=== PATIENT | male | born 1960 | race Caucasian/White ===

== ENCOUNTER 2016-12-11 16:46 | Inpatient (IN) | payer OTHER ==
[~2016-12-11] VITALS: Ht 180.3 cm; Wt 72.3 kg
[~2016-12-11 16:46] MED LIST: ACID1TAB7 PO; AMIL5TAB2 PO; AMOX1TAB12 PO; ARIP10TA13 PO; ERGO500017 PO; FLUC200T PO; HYDR12.53 PO; METO25TA35 PO; MULT-484 PO; PANT40TA5 PO; TRAM50TA2 PO
[2016-12-11] MEDS ORDERED: PIPERACILLIN/TAZO/PMX 3.375GM 50 ML IVPB ONE (17:00)
[2016-12-11] MEDS ORDERED: SODIUM CHLORIDE FLUSH 10ML SYR IVF ONE (17:00)
[2016-12-11] MEDS ORDERED: VANCOMYCIN PER PHARMACY MC ONE (17:00)
[2016-12-11] MEDS ORDERED: SODIUM CHLORIDE 0.9% 1,000ML IVBOLUS ONE (17:00)
[2016-12-11] MEDS ORDERED: LORazepam 2 MG/ML, 1ML IVPush ONE (17:00)
[2016-12-11] MEDS ORDERED: PANT40TA5 PO (17:06)
[2016-12-11] MEDS ORDERED: METO25TA35 PO (17:06)
[2016-12-11] MEDS ORDERED: CHOL200012 PO (17:06)
[2016-12-11] MEDS ORDERED: ARIP15TA2 PO (17:06)
[2016-12-11] MEDS ORDERED: PIPERACILLIN/TAZO/PMX 3.375GM 50 ML ONE (17:25)
[2016-12-11] MEDS ORDERED: LORazepam 2 MG/ML, 1ML ONE (17:25)
[2016-12-11 17:31] LABS: ASPARTATE AMINO TRANSFERASE 32 U/L (15-37); BLOOD UREA NITROGEN 16 mg/dL (7-18)
[2016-12-11] MEDS ORDERED: VANCOMYCIN 1,600 MG in SODIUM CHLORIDE 0.9% 250 ML IV ONE (18:00)
[2016-12-11] MEDS ORDERED: ZIPRASIDONE 20 MG INJ IM ONE (18:00)
[2016-12-11] MEDS: SODIUM CHLORIDE 0.9% 1,000 ML IV SCH (20:27)
[2016-12-11] MEDS ORDERED: HYDROmorphone 2 MG/ML, 1ML IVPush PRN (20:30)
[2016-12-11] MEDS ORDERED: DOCUSATE 100 MG CAPSULE PO PRN ×2 (20:30→21:30)
[2016-12-11] MEDS: NICOTINE 21 MG/24 HR PATCH.TD24 TD SCH (20:30)
[2016-12-11] MEDS ORDERED: POLYETHYLENE GLYCOL 17 GM PACKET PO PRN ×2 (20:30→22:00)
[2016-12-11] MEDS ORDERED: VANCOMYCIN PER PHARMACY MC PRN (20:30)
[2016-12-11] MEDS ORDERED: ONDANSETRON 2MG/ML, 2ML IVPush PRN ×2 (20:30→21:30)
[2016-12-11] MEDS ORDERED: PIPERACILLIN/TAZO/PMX 3.375GM 50 ML IV SCH (20:30)
[2016-12-11] MEDS ORDERED: TEMAZEPAM 15 MG CAPSULE PO PRN ×2 (20:30→22:00)
[2016-12-11] MEDS ORDERED: PHARMACY MAY ADJ FOR RENAL FX MC PRN (20:30)
[2016-12-11 20:56] VITALS: BP 116/76
[2016-12-11] MEDS ORDERED: PHARMACOKINETIC MONITORING MC PRN (21:30)
[2016-12-11] MEDS ORDERED: PHARMACOKINETIC CONSULTATION MC ONE (21:30)
[2016-12-11] MEDS: PIPERACILLIN/TAZO/PMX 3.375GM 50 ML IV SCH (23:30)
[2016-12-12 00:28] VITALS: BP 136/88
[2016-12-12 02:00] VITALS: BP 124/82
[2016-12-12 05:51] LABS: BLOOD UREA NITROGEN 13 mg/dL (7-18)
[2016-12-12] MEDS: HEPARIN 5,000 UNITS/ML, 1ML SQ SCH ×3 (06:15→20:08)
[2016-12-12] MEDS: PIPERACILLIN/TAZO/PMX 3.375GM 50 ML IV SCH ×4 (06:15→22:53)
[2016-12-12] MEDS: SODIUM CHLORIDE 0.9% 1,000 ML IV SCH ×3 (06:15→22:53)
[2016-12-12 08:00] VITALS: BP 120/74
[2016-12-12 13:16] VITALS: BP 117/79
[2016-12-12 20:00] VITALS: BP 126/84
[2016-12-12] MEDS: NICOTINE 21 MG/24 HR PATCH.TD24 TD SCH (20:07)
[2016-12-13 02:55] VITALS: BP 127/89
[2016-12-13] MEDS ORDERED: ZIPRASIDONE 20 MG INJ IM ONE (03:00)
[2016-12-13] MEDS: PIPERACILLIN/TAZO/PMX 3.375GM 50 ML IV SCH ×4 (05:47→22:58)
[2016-12-13] MEDS: HEPARIN 5,000 UNITS/ML, 1ML SQ SCH ×3 (05:49→22:56)
[2016-12-13 07:55] LABS: BLOOD UREA NITROGEN 9 mg/dL (7-18)
[2016-12-13] MEDS: SODIUM CHLORIDE 0.9% 1,000 ML IV SCH (08:36)
[2016-12-13] MEDS: ARIPIPRAZOLE 15 MG TABLET PO SCH (08:37)
[2016-12-13 08:42] VITALS: BP 124/85
[2016-12-13] MEDS ORDERED: VANCOMYCIN 1,400 MG in SODIUM CHLORIDE 0.9% 250 ML IV SCH (10:00)
[2016-12-13] MEDS: LORazepam 1MG TABLET PO PRN ×3 (11:56→22:54)
[2016-12-13 13:27] VITALS: BP 133/94
[2016-12-13] MEDS: METOPROLOL TARTRATE 25 MG TABLET PO SCH (18:19)
[2016-12-13] MEDS: PANTOPROZOLE 40MG TABLET PO SCH (20:21)
[2016-12-13] MEDS: NICOTINE 21 MG/24 HR PATCH.TD24 TD SCH (20:27)
[2016-12-13 20:55] VITALS: BP 123/87
[2016-12-14 02:55] VITALS: BP 115/77
[2016-12-14] MEDS: LORazepam 1MG TABLET PO PRN ×2 (05:45→14:29)
[2016-12-14] MEDS: METOPROLOL TARTRATE 25 MG TABLET PO SCH ×2 (05:45→17:21)
[2016-12-14] MEDS: HEPARIN 5,000 UNITS/ML, 1ML SQ SCH ×3 (05:47→23:04)
[2016-12-14] MEDS: PIPERACILLIN/TAZO/PMX 3.375GM 50 ML IV SCH ×4 (05:48→23:04)
[2016-12-14 06:53] VITALS: BP 119/82
[2016-12-14] MEDS: ARIPIPRAZOLE 15 MG TABLET PO SCH (08:35)
[2016-12-14] MEDS: PANTOPROZOLE 40MG TABLET PO SCH ×2 (08:35→20:15)
[2016-12-14] MEDS ORDERED: VANCOMYCIN 1,400 MG in SODIUM CHLORIDE 0.9% 250 ML IV SCH (10:00)
[2016-12-14 12:41] LABS: BLOOD UREA NITROGEN 11 mg/dL (7-18)
[2016-12-14 13:35] VITALS: BP 128/84
[2016-12-14] MEDS: HYDROCHLOROTHIAZIDE 12.5 MG CAPSULE PO SCH (14:19)
[2016-12-14] MEDS ORDERED: HALOPERIDOL 5 MG TABLET PO PRN (15:30)
[2016-12-14 20:10] VITALS: BP 126/84
[2016-12-14] MEDS: NICOTINE 21 MG/24 HR PATCH.TD24 TD SCH (20:30)
[2016-12-14] MEDS: HALOPERIDOL 5 MG/ML IM PRN (23:02)
[2016-12-15 02:55] VITALS: BP 119/72
[2016-12-15] MEDS: HALOPERIDOL 5 MG/ML IM PRN (03:26)
[2016-12-15] MEDS: LORazepam 1MG TABLET PO PRN (05:58)
[2016-12-15] MEDS: METOPROLOL TARTRATE 25 MG TABLET PO SCH ×3 (06:00→17:12)
[2016-12-15] MEDS: HEPARIN 5,000 UNITS/ML, 1ML SQ SCH ×3 (06:03→23:03)
[2016-12-15] MEDS: PIPERACILLIN/TAZO/PMX 3.375GM 50 ML IV SCH ×4 (06:04→23:05)
[2016-12-15 06:20] LABS: BLOOD UREA NITROGEN 14 mg/dL (7-18)
[2016-12-15 07:38] VITALS: BP 124/78
[2016-12-15] MEDS: HYDROCHLOROTHIAZIDE 12.5 MG CAPSULE PO SCH (08:57)
[2016-12-15] MEDS: ARIPIPRAZOLE 15 MG TABLET PO SCH ×2 (08:57→21:00)
[2016-12-15] MEDS: PANTOPROZOLE 40MG TABLET PO SCH ×2 (08:57→20:00)
[2016-12-15] MEDS: ZIPRASIDONE 20 MG INJ IM PRN ×3 (11:11→23:01)
[2016-12-15] MEDS: AMILORIDE 5 MG TABLET PO SCH (12:39)
[2016-12-15 13:28] LABS: POTASSIUM,URINE RANDOM 11 mmol/L
[2016-12-15 14:18] VITALS: BP 127/78
[2016-12-15] MEDS: NICOTINE 21 MG/24 HR PATCH.TD24 TD SCH (20:30)
[2016-12-15 20:56] VITALS: BP 113/72
[2016-12-15] MEDS: CARBAMAZEPINE 200 MG TABLET PO SCH (21:00)
[2016-12-16 03:49] VITALS: BP 109/68
[2016-12-16 05:47] LABS: BLOOD UREA NITROGEN 14 mg/dL (7-18)
[2016-12-16] MEDS: METOPROLOL TARTRATE 25 MG TABLET PO SCH ×2 (06:00→18:21)
[2016-12-16] MEDS: HEPARIN 5,000 UNITS/ML, 1ML SQ SCH ×3 (06:00→22:00)
[2016-12-16] MEDS: PIPERACILLIN/TAZO/PMX 3.375GM 50 ML IV SCH ×4 (06:01→23:56)
[2016-12-16] MEDS: ZIPRASIDONE 20 MG INJ IM PRN (06:36)
[2016-12-16 07:43] VITALS: BP 118/74
[2016-12-16] MEDS: PANTOPROZOLE 40MG TABLET PO SCH ×2 (08:00→19:59)
[2016-12-16] MEDS: AMILORIDE 5 MG TABLET PO SCH (09:00)
[2016-12-16] MEDS: HYDROCHLOROTHIAZIDE 12.5 MG CAPSULE PO SCH (09:00)
[2016-12-16] MEDS: ARIPIPRAZOLE 15 MG TABLET PO SCH ×2 (09:00→21:00)
[2016-12-16] MEDS: CARBAMAZEPINE 200 MG TABLET PO SCH ×2 (09:00→21:00)
[2016-12-16] MEDS ORDERED: OLANZAPINE 10 MG INJ IM PRN (12:00)
[2016-12-16 14:10] VITALS: BP 112/76
[2016-12-16 19:53] VITALS: BP 113/76
[2016-12-16] MEDS: NICOTINE 21 MG/24 HR PATCH.TD24 TD SCH (19:59)
[2016-12-17 00:30] VITALS: BP 129/88
[2016-12-17] MEDS: PIPERACILLIN/TAZO/PMX 3.375GM 50 ML IV SCH ×4 (05:22→23:40)
[2016-12-17] MEDS: HEPARIN 5,000 UNITS/ML, 1ML SQ SCH ×3 (05:42→21:34)
[2016-12-17] MEDS: METOPROLOL TARTRATE 25 MG TABLET PO SCH ×2 (05:42→18:00)
[2016-12-17] MEDS: CARBAMAZEPINE 200 MG TABLET PO SCH (08:14)
[2016-12-17] MEDS: ARIPIPRAZOLE 15 MG TABLET PO SCH ×2 (08:15→21:00)
[2016-12-17] MEDS: PANTOPROZOLE 40MG TABLET PO SCH ×2 (08:15→21:33)
[2016-12-17] MEDS: HYDROCHLOROTHIAZIDE 12.5 MG CAPSULE PO SCH (08:15)
[2016-12-17] MEDS ORDERED: LORazepam 2 MG/ML, 1ML IVPush ONE (09:00)
[2016-12-17] MEDS ORDERED: OLANZAPINE 10 MG INJ IM PRN (09:30)
[2016-12-17 10:37] LABS: BLOOD UREA NITROGEN 16 mg/dL (7-18)
[2016-12-17 10:40] LABS: ASPARTATE AMINO TRANSFERASE 59 U/L (15-37)
[2016-12-17] MEDS: VALPROATE SODIUM 500 MG in DEXTROSE 5% 100 ML IV SCH ×2 (10:40→21:33)
[2016-12-17] MEDS: AMILORIDE 5 MG TABLET PO SCH (11:40)
[2016-12-17 12:30] VITALS: BP 123/88
[2016-12-17] MEDS ORDERED: POTASSIUM CHLORIDE 20 MEQ TAB.ER.PRT PO ONE (16:30)
[2016-12-17] MEDS: FLUCONAZOLE 200 MG/100 ML 100 ML IV SCH (17:08)
[2016-12-17 20:22] VITALS: BP 134/78
[2016-12-17] MEDS: NICOTINE 21 MG/24 HR PATCH.TD24 TD SCH (21:34)
[2016-12-18 01:38] VITALS: BP 119/83
[2016-12-18] MEDS: PIPERACILLIN/TAZO/PMX 3.375GM 50 ML IV SCH ×3 (05:19→17:28)
[2016-12-18] MEDS: METOPROLOL TARTRATE 25 MG TABLET PO SCH ×2 (05:19→17:26)
[2016-12-18] MEDS: HEPARIN 5,000 UNITS/ML, 1ML SQ SCH ×3 (05:20→22:56)
[2016-12-18 08:29] LABS: BLOOD UREA NITROGEN 15 mg/dL (7-18)
[2016-12-18 08:33] VITALS: BP 124/90
[2016-12-18] MEDS: ARIPIPRAZOLE 15 MG TABLET PO SCH ×2 (09:00→20:50)
[2016-12-18] MEDS: LORazepam 1MG TABLET PO PRN ×2 (09:29→14:55)
[2016-12-18] MEDS: HYDROCHLOROTHIAZIDE 12.5 MG CAPSULE PO SCH (10:18)
[2016-12-18] MEDS: VALPROATE SODIUM 500 MG in DEXTROSE 5% 100 ML IV SCH ×2 (10:18→22:57)
[2016-12-18] MEDS: PANTOPROZOLE 40MG TABLET PO SCH ×2 (10:18→20:50)
[2016-12-18 14:54] VITALS: BP 126/89
[2016-12-18] MEDS: FLUCONAZOLE 200 MG/100 ML 100 ML IV SCH (17:27)
[2016-12-18 19:36] VITALS: BP 123/88
[2016-12-18] MEDS: NICOTINE 21 MG/24 HR PATCH.TD24 TD SCH ×2 (20:30→20:50)
[2016-12-19] MEDS: PIPERACILLIN/TAZO/PMX 3.375GM 50 ML IV SCH ×6 (00:08→21:25)
[2016-12-19 01:50] VITALS: BP 105/76
[2016-12-19 05:09] LABS: BLOOD UREA NITROGEN 18 mg/dL (7-18)
[2016-12-19] MEDS: HEPARIN 5,000 UNITS/ML, 1ML SQ SCH ×3 (05:24→21:11)
[2016-12-19] MEDS: METOPROLOL TARTRATE 25 MG TABLET PO SCH ×2 (05:25→16:34)
[2016-12-19] MEDS: LORazepam 1MG TABLET PO PRN ×2 (06:05→13:33)
[2016-12-19 08:00] VITALS: BP 128/87
[2016-12-19] MEDS: ARIPIPRAZOLE 15 MG TABLET PO SCH ×2 (09:00→21:10)
[2016-12-19] MEDS: HYDROCHLOROTHIAZIDE 12.5 MG CAPSULE PO SCH (09:00)
[2016-12-19] MEDS: PANTOPROZOLE 40MG TABLET PO SCH ×2 (10:21→21:10)
[2016-12-19] MEDS: VALPROATE SODIUM 500 MG in DEXTROSE 5% 100 ML IV SCH (10:21)
[2016-12-19 14:00] VITALS: BP 105/73
[2016-12-19] MEDS: FLUCONAZOLE 200 MG/100 ML 100 ML IV SCH (16:34)
[2016-12-19 20:04] VITALS: BP 126/83
[2016-12-19] MEDS: VALPROATE SODIUM 250 MG/5 ML ORAL SOLN PO SCH (21:11)
[2016-12-19] MEDS: NICOTINE 21 MG/24 HR PATCH.TD24 TD SCH (21:11)
[2016-12-20 02:12] VITALS: BP 108/76
[2016-12-20] MEDS: PIPERACILLIN/TAZO/PMX 3.375GM 50 ML IV SCH ×2 (04:59→11:22)
[2016-12-20] MEDS: HEPARIN 5,000 UNITS/ML, 1ML SQ SCH ×3 (05:52→22:20)
[2016-12-20] MEDS: METOPROLOL TARTRATE 25 MG TABLET PO SCH ×2 (05:52→18:28)
[2016-12-20 06:45] VITALS: BP 129/79
[2016-12-20] MEDS: HYDROCHLOROTHIAZIDE 12.5 MG CAPSULE PO SCH (08:17)
[2016-12-20] MEDS: PANTOPROZOLE 40MG TABLET PO SCH ×2 (08:17→20:35)
[2016-12-20] MEDS: VALPROATE SODIUM 250 MG/5 ML ORAL SOLN PO SCH ×2 (08:18→20:36)
[2016-12-20] MEDS: ARIPIPRAZOLE 15 MG TABLET PO SCH ×2 (08:18→20:35)
[2016-12-20] MEDS: SULFAMETH./TRIMETHOPRIM DS 800MG/160MG TABLET PO SCH ×2 (13:42→20:35)
[2016-12-20] MEDS: LORazepam 1MG TABLET PO PRN ×2 (13:42→18:51)
[2016-12-20 13:45] VITALS: BP 123/83
[2016-12-20 19:39] VITALS: BP 122/83
[2016-12-20] MEDS: NICOTINE 21 MG/24 HR PATCH.TD24 TD SCH (20:30)
[2016-12-21 02:05] VITALS: BP 108/78
[2016-12-21 05:41] LABS: BLOOD UREA NITROGEN 25 mg/dL (7-18)
[2016-12-21] MEDS: METOPROLOL TARTRATE 25 MG TABLET PO SCH ×2 (06:03→18:01)
[2016-12-21] MEDS: NYSTATIN 500,000 UNITS/5 ML UDC PO SCH ×4 (06:04→19:46)
[2016-12-21] MEDS: HEPARIN 5,000 UNITS/ML, 1ML SQ SCH ×3 (06:06→19:46)
[2016-12-21 07:28] VITALS: BP 108/81
[2016-12-21] MEDS: SULFAMETH./TRIMETHOPRIM DS 800MG/160MG TABLET PO SCH ×2 (08:49→19:45)
[2016-12-21] MEDS: VALPROATE SODIUM 250 MG/5 ML ORAL SOLN PO SCH ×2 (08:49→19:45)
[2016-12-21] MEDS: PANTOPROZOLE 40MG TABLET PO SCH ×2 (08:50→19:46)
[2016-12-21] MEDS: ARIPIPRAZOLE 15 MG TABLET PO SCH ×2 (08:50→19:46)
[2016-12-21] MEDS: HYDROCHLOROTHIAZIDE 12.5 MG CAPSULE PO SCH (08:50)
[2016-12-21] MEDS: FLUCONAZOLE 200 MG TABLET PO SCH (08:50)
[2016-12-21 13:25] VITALS: BP 117/84
[2016-12-21] MEDS: LORazepam 1MG TABLET PO PRN ×2 (13:27→18:01)
[2016-12-21] MEDS: NICOTINE 21 MG/24 HR PATCH.TD24 TD SCH (19:09)
[2016-12-21 19:16] VITALS: BP 101/67
[2016-12-22 01:50] VITALS: BP 122/86
[2016-12-22] MEDS: HEPARIN 5,000 UNITS/ML, 1ML SQ SCH ×3 (05:12→22:00)
[2016-12-22] MEDS: LORazepam 1MG TABLET PO PRN ×2 (05:12→11:06)
[2016-12-22] MEDS: NYSTATIN 500,000 UNITS/5 ML UDC PO SCH ×3 (05:12→16:10)
[2016-12-22] MEDS: METOPROLOL TARTRATE 25 MG TABLET PO SCH (05:12)
[2016-12-22 06:02] LABS: BLOOD UREA NITROGEN 23 mg/dL (7-18)
[2016-12-22 08:15] VITALS: BP 121/83
[2016-12-22] MEDS: ARIPIPRAZOLE 15 MG TABLET PO SCH (08:19)
[2016-12-22] MEDS: PANTOPROZOLE 40MG TABLET PO SCH (08:20)
[2016-12-22] MEDS: SULFAMETH./TRIMETHOPRIM DS 800MG/160MG TABLET PO SCH (08:20)
[2016-12-22] MEDS: VALPROATE SODIUM 250 MG/5 ML ORAL SOLN PO SCH (08:20)
[2016-12-22] MEDS: FLUCONAZOLE 200 MG TABLET PO SCH (08:20)
[2016-12-22 13:48] VITALS: BP 110/82
[2016-12-22 15:21] LABS: ABG COLLECTION SITE LEFT RADIAL; COLLATERAL CIRCULATION TESTING NORMAL
[2016-12-22 19:25] VITALS: BP 108/75
[2016-12-22 20:30] VITALS: BP 127/88
[2016-12-22] MEDS: NICOTINE 21 MG/24 HR PATCH.TD24 TD SCH (20:30)
[2016-12-22] MEDS ORDERED: HEPARIN 5,000 UNITS/ML, 1ML IV ONE (23:45)
[2016-12-23] MEDS: PANTOPROZOLE 40MG TABLET PO SCH ×3 (01:44→21:33)
[2016-12-23] MEDS: NYSTATIN 500,000 UNITS/5 ML UDC PO SCH ×5 (01:44→21:32)
[2016-12-23] MEDS: VALPROATE SODIUM 250 MG/5 ML ORAL SOLN PO SCH ×3 (01:44→21:32)
[2016-12-23] MEDS: SULFAMETH./TRIMETHOPRIM DS 800MG/160MG TABLET PO SCH ×3 (01:44→21:33)
[2016-12-23] MEDS: METOPROLOL TARTRATE 25 MG TABLET PO SCH ×3 (01:44→17:26)
[2016-12-23] MEDS: ARIPIPRAZOLE 15 MG TABLET PO SCH ×3 (01:45→21:30)
[2016-12-23 02:13] VITALS: BP 104/73
[2016-12-23] MEDS: HEPARIN 25,000 UNITS/500ML PMX 500 ML IV PRN (03:53)
[2016-12-23 06:08] LABS: BLOOD UREA NITROGEN 24 mg/dL (7-18)
[2016-12-23 08:30] VITALS: BP 104/73
[2016-12-23] MEDS: FLUCONAZOLE 200 MG TABLET PO SCH (09:24)
[2016-12-23] MEDS: SODIUM CHLORIDE 0.9% 1,000 ML IV SCH ×2 (09:24→18:05)
[2016-12-23 14:30] VITALS: BP 110/76
[2016-12-23] MEDS: HEPARIN 5,000 UNITS/ML, 1ML IV PRN (17:25)
[2016-12-23 19:43] VITALS: BP 104/72
[2016-12-23] MEDS: NICOTINE 21 MG/24 HR PATCH.TD24 TD SCH (19:45)
[2016-12-24 02:00] VITALS: BP 128/83
[2016-12-24 05:59] LABS: BLOOD UREA NITROGEN 21 mg/dL (7-18)
[2016-12-24] MEDS: NYSTATIN 500,000 UNITS/5 ML UDC PO SCH ×4 (06:20→20:40)
[2016-12-24] MEDS: METOPROLOL TARTRATE 25 MG TABLET PO SCH ×2 (06:22→16:50)
[2016-12-24] MEDS: HEPARIN 25,000 UNITS/500ML PMX 500 ML IV PRN (06:38)
[2016-12-24] MEDS: HEPARIN 5,000 UNITS/ML, 1ML IV PRN (07:10)
[2016-12-24 08:30] VITALS: BP 115/78
[2016-12-24] MEDS ORDERED: SODIUM CHLORIDE 0.9% 1,000 ML IV SCH (08:30)
[2016-12-24] MEDS: ARIPIPRAZOLE 15 MG TABLET PO SCH ×2 (09:54→20:41)
[2016-12-24] MEDS: LORazepam 1MG TABLET PO PRN ×3 (09:55→20:40)
[2016-12-24] MEDS: PANTOPROZOLE 40MG TABLET PO SCH ×2 (09:57→20:41)
[2016-12-24] MEDS: SULFAMETH./TRIMETHOPRIM DS 800MG/160MG TABLET PO SCH ×2 (09:57→20:41)
[2016-12-24] MEDS: FLUCONAZOLE 200 MG TABLET PO SCH (09:58)
[2016-12-24] MEDS: VALPROATE SODIUM 250 MG/5 ML ORAL SOLN PO SCH ×2 (09:59→20:41)
[2016-12-24] MEDS: SODIUM CHLORIDE 0.9% 1,000 ML IV SCH ×2 (13:20→23:27)
[2016-12-24] MEDS: APIXABAN 5 MG TABLET PO SCH ×2 (13:20→20:40)
[2016-12-24 14:30] VITALS: BP 118/72
[2016-12-24] MEDS: NICOTINE 21 MG/24 HR PATCH.TD24 TD SCH (19:20)
[2016-12-24 20:33] VITALS: BP 128/74
[2016-12-25 03:00] VITALS: BP 120/80
[2016-12-25] MEDS: METOPROLOL TARTRATE 25 MG TABLET PO SCH (04:56)
[2016-12-25] MEDS: LORazepam 1MG TABLET PO PRN ×2 (04:56→14:45)
[2016-12-25] MEDS: NYSTATIN 500,000 UNITS/5 ML UDC PO SCH ×2 (04:56→11:23)
[2016-12-25 05:29] LABS: BLOOD UREA NITROGEN 16 mg/dL (7-18)
[2016-12-25 07:39] VITALS: BP 106/72
[2016-12-25] MEDS ORDERED: SODIUM CHLORIDE 0.9% 1,000 ML IV SCH (08:30)
[2016-12-25] MEDS: VALPROATE SODIUM 250 MG/5 ML ORAL SOLN PO SCH (08:43)
[2016-12-25] MEDS: FLUCONAZOLE 200 MG TABLET PO SCH (08:44)
[2016-12-25] MEDS: APIXABAN 5 MG TABLET PO SCH (08:44)
[2016-12-25] MEDS: SULFAMETH./TRIMETHOPRIM DS 800MG/160MG TABLET PO SCH (08:44)
[2016-12-25] MEDS: ARIPIPRAZOLE 15 MG TABLET PO SCH (08:44)
[2016-12-25] MEDS: PANTOPROZOLE 40MG TABLET PO SCH (08:44)
[2016-12-25] MEDS ORDERED: NICO1PAT5 TD (13:05)
[2016-12-25] MEDS ORDERED: NYST1000 PO (13:05)
[2016-12-25] MEDS ORDERED: SULF1TAB3 PO (13:05)
[2016-12-25] MEDS ORDERED: APIX5TAB PO (13:05)
[2016-12-25] MEDS ORDERED: VALP250S PO (13:05)
[2016-12-25] MEDS ORDERED: ARIP15TA2 PO (13:05)
[2016-12-25] MEDS ORDERED: FLUC200T PO (13:05)
[2016-12-25] MEDS ORDERED: OLAN10VI2 IM (13:14)
[2016-12-31] MEDS ORDERED: APIXABAN 5 MG TABLET PO SCH (09:00)
== END 2016-12-25 15:38 | disposition home or self-care (01) | DRG 602 ==
LOC: ED 18:26 → EDIP 19:07 → 3NE 20:00 → 4WST 12-22 20:05
PROVIDERS: ADMIT Internal Medicine
DX: L03.311 Cellulitis of abdominal wall (principal); N17.0 Acute kidney failure with tubular necrosis; I26.99 Other pulmonary embolism without acute cor pulmonale; L03.116 Cellulitis of left lower limb; F31.2 Bipolar disorder, current episode manic severe with psychotic features; E22.2 Syndrome of inappropriate secretion of antidiuretic hormone; N25.1 Nephrogenic diabetes insipidus; F17.210 Nicotine dependence, cigarettes, uncomplicated; Z79.899 Other long term (current) drug therapy; I10 Essential (primary) hypertension; D63.8 Anemia in other chronic diseases classified elsewhere; R09.02 Hypoxemia; F91.9 Conduct disorder, unspecified; R45.850 Homicidal ideations; Z78.1 Physical restraint status; Z79.01 Long term (current) use of anticoagulants; Z81.8 Family history of other mental and behavioral disorders; Z87.11 Personal history of peptic ulcer disease
CPT/HCPCS: 36415; 36600; 51701; 70450; 71010; 71275; 74000; 78582; 80048; 80053; 80164; 81003; 82040; 82140; 82436; 82550; 82803; 83605; 83735; 83935; 84100; 84133; 84145; 84300; 85025; 85379; 85520; 87040; 87070; 87106; 87205; 87324; 93005; 93922; 93970; 96365; 96368; 96375; J1644; J2405; J2543; J3370; J3486; A9540; A9558; C9898; J1450; J1630; J2060; J7030; J7050; P9612

== ENCOUNTER 2021-01-08 17:56 | Observation (INO) | payer MEDICAID, OTHER ==
[~2021-01-08] VITALS: Ht 193 cm; Wt 65.0 kg
[~2021-01-08 17:56] MED LIST changes: +APIX5TAB PO; -ARIP10TA13 PO; +ARIP10TA33 PO; +ARIP15TA3 PO; +CHOL200074 PO; +HYDR12.517 PO; -HYDR12.53 PO; +NICO-587 TD; +NYST1000 PO; +OLAN10VI2 IM; -PANT40TA5 PO; +PANT40TA6 PO; +SULF-169 PO; +VALP250S PO
--- NOTE | 2021-01-08 19:25 | NUR ---
PT TO ROOM 2 FROM [place]. INITIAL PT CONTACT. [facility] C/O "I NEED TO GET MY MEDS EVALUATED, I TAKE MEDS FOR SCHIZO AND BIPOLAR AND I HAVE JUST BEEN SO SLEEPY OVER THE PAST FEW DAYS." PT CALM AND COOPERATIVE WITH STAFF AND EMS UPON ARRIVAL. PT DENIES HI AND SI. PT PLACED ON CONTINUOUS MONITORING, CALL LIGHT AND PERSONAL BELONGINGS WITHIN REACH. AWAITING ERP.
--- NOTE | 2021-01-08 22:00 | NUR ---
DISCUSSION WITH CARE FACILITY THAT PT WAS TRANFERED FROM, [facility], SPOKE WITH STAFF ROSY. 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 PER OUR PA HERE, HE NEEDED TO BE EVALUATED AT THE ER AND HOPEFULLY BE PLACED IN A BEHAVIOR HEALTH FACILITY. HE WAS NOT PUT ON A LEGAL HOLD BY US OR ANYTHING LIKE THAT BUT HE NEEDS THE EVALUATION FOR HIS MENTAL HEALTH." ERP DR. NOYOLA AWARE. ALL PERSONAL BELONGINGS PLACED IN PT BELONGINGS BAG (X1 BAG AND PLACED IN APPROPRIATE LOCKER. ROOM SECURED, SAFETY PRECAUTIONS IN PLACE AND SITTER IN VIEW. PT PROVIDED WATER, SPRITE AND CRACKERS PER REQUEST. URINE SAMPLE PROVIDED AND WALKED TO LAB BY THIS RN. PT DENIES ANY ADDITIONAL NEEDS AT THIS TIME.
[2021-01-08 22:27] LABS: BASOPHILS % (AUTO) 1 % (0-1); EOSINOPHILS % (AUTO) 3 % (1-7); LYMPHOCYTES % (AUTO) 36 % (22-44); MEAN CORPUSCULAR HEMOGLOBIN 32.8 pg (27.5-34.5); MEAN CORPUSCULAR HGB CONC 33.4 g/dL (33.2-36.2); MEAN PLATELET VOLUME 9.7 fL (7.4-10.4); MONOCYTES % (AUTO) 10 % (2-9); NEUTROPHILS % (AUTO) 50 % (42-75); PLATELET COUNT 132 x10^3/uL (130-400); RED BLOOD COUNT 3.97 x10^6/uL (4.38-5.82); RED CELL DISTRIBUTION WIDTH 16.1 % (9.4-14.8)
[2021-01-08 22:39] LABS: ALBUMIN 3.4 g/dL (3.4-5.0); ANION GAP 7 mmol/L (5-15); CALCIUM 9.2 mg/dL (8.5-10.1); CHLORIDE 109 mmol/L (98-107); CREATININE 1.57 mg/dL (0.7-1.3)
[2021-01-08 22:40] LABS: AMPHETAMINE SCREEN, URINE Negative (Negative); BARBITURATE SCREEN, URINE Negative (Negative); BENZODIAZEPINE SCREEN, URINE Negative (Negative); CANNABINOID SCREEN, URINE Negative (Negative); COCAINE SCREEN, URINE Negative (Negative); METHADONE SCREEN, URINE Negative (Negative); OPIATE SCREEN, URINE Negative (Negative)
[2021-01-08 22:40] LABS: SALICYLATE LEVEL < 1.7 mg/dL (2.8-20.0)
[2021-01-08 23:04] LABS: FREE T4 (FREE THYROXINE) 0.54 ng/dL (0.76-1.46)
--- NOTE | 2021-01-09 02:00 | NUR ---
PT SUPINE ON GURNEY RESTING COMFORTABLY WITH EYES CLOSED. PT DENIES ANY NEEDS AT THIS TIME. SAFETY PRECAUTIONS IN PLACE, SAFETY DRAKE DOWN AND SITTER IN VIEW.
--- NOTE | 2021-01-09 02:31 | NUR ---
AWAITING TELEPSYCH AT THIS TIME.
--- NOTE | 2021-01-09 05:00 | NUR ---
DISCUSSION WITH TELEPSYCH PROVIDER. TELEPSYCH ADVISES THAT PT BE PLACED ON L2K AND BE MEDICATED JERRELL WITH 20MG GEODON, FOLLOWING INITIAL ADMIN, PT TO RECEIVE 20MG GEODON Q12H, PROVIDER ALSO SUGGESTS PRN ATIVAN, 1 MG IM NEEDED FOR AGITATION. ERP AWARE AND PT TO BE MEDICATED PER EMAR.
[2021-01-09] MEDS ORDERED: ZIPRASIDONE 20 MG INJ IM ONE ×2 (05:03→05:30)
[2021-01-09] MEDS ORDERED: LORazepam 2 MG/ML, 1ML IM PRN (05:30)
--- NOTE | 2021-01-09 07:03 | NUR ---
BEDSIDE REPORT GIVEN TO CATHERINE REED
--- NOTE | 2021-01-09 07:12 | NUR ---
ASSUMING CARE OF PT AFTER BEDSIDE REPORT. PT AWAKE AFTER MORNING VITALS. STEADY GAIT TO BATHROOM. VSS. NADN. SITTER AT BEDSIDE. SAFETY PRCAUTIONS IN PLACE.
[2021-01-09] MEDS ORDERED: LORazepam 2 MG/ML, 1ML ONE (08:47)
--- NOTE | 2021-01-09 09:00 | NUR ---
PT GIVEN BREAKFAST TRAY. SAT UP AND ATE FOOD. PT STATED HE IS FEELING ANXIOUS. PT MEDICATED PER EMAR. SAFETY PRECAUTIONS IN PLACE. SITTER AT BEDSIDE.
--- NOTE | 2021-01-09 10:12 | NUR ---
PT ASLEEP WITH EVEN AND UNLABORED RESPIRATIONS. NADN. SAFETY PRECAUTIONS IN PLACE.
--- NOTE | 2021-01-09 11:22 | NUR ---
PT ASLEEP WITH EVEN AND UNLABORED RESPIRATIONS. NADN. SAFETY PRECAUTIONS IN PLACE.
--- NOTE | 2021-01-09 12:00 | NUR ---
psych PICKING TECH to bedside for evaluation.
--- NOTE | 2021-01-09 12:11 | NUR ---
PT PROVIDED WITH LUNCH TRAY.
--- NOTE | 2021-01-09 12:12 | NUR ---
SITTER AT BEDSIDE. SAFETY PRECAUTIONS IN PLACE.
[2021-01-09] MEDS ORDERED: DIVALPROEX 500 MG TAB.ER.24H ONE (12:19)
[2021-01-09] MEDS ORDERED: DIVALPROEX 500 MG TABLET.DR PO SCH (12:30)
[2021-01-09] MEDS ORDERED: CARBAMAZEPINE 200 MG TABLET PO SCH (12:30)
[2021-01-09] MEDS ORDERED: CARBAMAZEPINE 200 MG TABLET ONE (13:48)
--- NOTE | 2021-01-09 14:04 | NUR ---
PT MEDICATED PER JUL. WATER PROVIDED
[2021-01-09] MEDS ORDERED: ZIPRASIDONE 20 MG INJ IM PRN ×2 (17:30)
[2021-01-09 17:40] VITALS: BP 127/85
[2021-01-09] MEDS ORDERED: ZIPRASIDONE 40MG CAPSULE PO SCH (21:00)
[2021-01-09] MEDS ORDERED: BENZTROPINE 1 MG TABLET PO SCH (21:00)
== END 2021-01-09 14:07 | disposition home or self-care (01) ==
LOC: ED 01-09 02:50 → EDIP 01-09 02:51
PROVIDERS: ADMIT Student in an Organized Health Care Education/Training Program; ATTEND Student in an Organized Health Care Education/Training Program
DX: F25.0 Schizoaffective disorder, bipolar type (principal); Z20.822 Contact with and (suspected) exposure to COVID-19; F91.9 Conduct disorder, unspecified; F17.200 Nicotine dependence, unspecified, uncomplicated; Z79.899 Other long term (current) drug therapy
CPT/HCPCS: 36415; 80048; 80299; 80307; 80320; 80329; 82040; 84439; 84443; 85025; 87635; 93005; 96372; 99284; G0378; J2060; J3486; G0480